=== PATIENT | female | born 1965 | race Caucasian/White ===

== ENCOUNTER 2017-08-04 14:49 | Emergency (ER) | payer MEDICAID ==
[~2017-08-04] VITALS: Ht 154.9 cm; Wt 70.2 kg
[~2017-08-04 14:49] MED LIST: ALBU8.5H8 IH; NORCO10T PO
[2017-08-04 14:50] VITALS: BP 135/81
[2017-08-04 15:26] LABS: BASOPHILS % (AUTO) 0.8 % (0-1); EOSINOPHILS # (AUTO) 0.2 X10'3 (0-0.9); EOSINOPHILS % (AUTO) 2.8 % (0-6); HEMATOCRIT 40.1 % (35.0-45.0); HEMOGLOBIN 13.7 g/dl (12.0-16.0); LYMPHOCYTES # (AUTO) 3.2 X10'3 (1.1-4.8); LYMPHOCYTES % (AUTO) 49.5 % (21-51); MEAN CORPUSCULAR HEMOGLOBIN 32.4 PG (27.0-31.0); MEAN CORPUSCULAR HGB CONC 34.1 % (33.0-36.5); MEAN CORPUSCULAR VOLUME 94.8 FL (78-98); MEAN PLATELET VOLUME 8.3 FL (7.4-10.4); MONOCYTES # (AUTO) 0.5 X10'3 (0-0.9); MONOCYTES % (AUTO) 7.8 % (2-12); NEUTROPHILS # (AUTO) 2.5 X10'3 (1.8-7.7); NEUTROPHILS % (AUTO) 39.1 % (42-75); PLATELET COUNT 175 X10'3 (140-440); RED BLOOD COUNT 4.23 X10'6 (4.20-5.60); RED CELL DISTRIBUTION WIDTH 14.3 % (11.5-14.5); WHITE BLOOD COUNT 6.4 X10'3 (4.5-11.0)
[2017-08-04 15:40] LABS: ALANINE AMINOTRANSFERASE 147 U/L (12-78); ALBUMIN 3.7 G/DL (3.4-5.0); ALKALINE PHOSPHATASE 59 IU/L (46-116); ANION GAP 7 (8-16); ASPARTATE AMINO TRANSFERASE 96 U/L (10-37); BILIRUBIN,TOTAL 0.3 MG/DL (0.1-1.0); BLOOD UREA NITROGEN 8 MG/DL (7-18); CALCIUM 8.9 MG/DL (8.5-10.1); CHLORIDE 104 MMOL/L (99-107); GLUCOSE 124 MG/DL (70-104); POTASSIUM 3.5 MMOL/L (3.5-5.1); SODIUM 137 MMOL/L (135-145); TOTAL CARBON DIOXIDE 26.2 MMOL/L (24-32); TOTAL PROTEIN 7.3 G/DL (6.4-8.2); eGFR 75 ML/MIN
[2017-08-04] MEDS ORDERED: POTA20TA19 PO (15:47)
[2017-08-04] MEDS ORDERED: diphenhydrAMINE 50 mg/ml inj IM ONE (15:50)
[2017-08-04] MEDS ORDERED: ketorolac trometh inj. 60 MG/2 ML VIAL IM ONE (15:50)
[2017-08-04] MEDS ORDERED: LORazepam 1 MG tablet PO ONE (15:50)
[2017-08-04] MEDS ORDERED: metoclopramide 5 mg/ml inj IM ONE (15:50)
== END 2017-08-04 16:25 | disposition home or self-care (01) ==
LOC: ER 14:50
DX: E87.6 Hypokalemia (principal); R51 Headache; R20.0 Anesthesia of skin; R68.84 Jaw pain; F17.210 Nicotine dependence, cigarettes, uncomplicated; G89.29 Other chronic pain; Z90.49 Acquired absence of other specified parts of digestive tract; Z90.710 Acquired absence of both cervix and uterus; Z98.890 Other specified postprocedural states; Z56.0 Unemployment, unspecified; Z88.0 Allergy status to penicillin; Z88.2 Allergy status to sulfonamides; Z88.5 Allergy status to narcotic agent; Z79.899 Other long term (current) drug therapy
CPT/HCPCS: 36415; 70450; 80053; 85025; 96372; 99285; J1200; J1885; J2765

== ENCOUNTER 2017-12-18 20:02 | Emergency (ER) | payer MEDICAID ==
[~2017-12-18] VITALS: Ht 154.9 cm; Wt 57.0 kg
[2017-12-18 20:03] VITALS: BP 122/73
== END 2017-12-18 21:16 | disposition home or self-care (01) ==
LOC: ER 20:03
DX: S86.912A Strain of unspecified muscle(s) and tendon(s) at lower leg level, left leg, initial encounter (principal); G89.29 Other chronic pain; Z90.49 Acquired absence of other specified parts of digestive tract; Z90.710 Acquired absence of both cervix and uterus; Z98.890 Other specified postprocedural states; Z56.0 Unemployment, unspecified; Z88.5 Allergy status to narcotic agent; Z88.0 Allergy status to penicillin; Z88.2 Allergy status to sulfonamides; Z79.899 Other long term (current) drug therapy; X58.XXXA Exposure to other specified factors, initial encounter; Y93.89 Activity, other specified; Y92.89 Other specified places as the place of occurrence of the external cause; Y99.8 Other external cause status
CPT/HCPCS: 99281

== ENCOUNTER 2019-03-19 17:07 | Emergency (ER) | payer MEDICAID ==
[~2019-03-19] VITALS: Ht 152.4 cm; Wt 61.4 kg
[~2019-03-19 17:07] MED LIST changes: +ONDA4TAB6 PO; +PANT-47 PO
[2019-03-19] MEDS ORDERED: DICL100G15 TOP (18:19)
[2019-03-19 18:20] VITALS: BP 143/93
== END 2019-03-19 18:28 | disposition home or self-care (01) ==
LOC: ER 17:08
DX: M25.512 Pain in left shoulder (principal); G89.29 Other chronic pain; F17.200 Nicotine dependence, unspecified, uncomplicated; F10.99 Alcohol use, unspecified with unspecified alcohol-induced disorder; Z86.19 Personal history of other infectious and parasitic diseases; Z90.49 Acquired absence of other specified parts of digestive tract; Z90.710 Acquired absence of both cervix and uterus; Z98.890 Other specified postprocedural states; Z56.0 Unemployment, unspecified; Z88.2 Allergy status to sulfonamides; Z88.0 Allergy status to penicillin; Z88.8 Allergy status to other drugs, medicaments and biological substances; Z88.5 Allergy status to narcotic agent; Z79.899 Other long term (current) drug therapy; X58.XXXA Exposure to other specified factors, initial encounter; Y93.89 Activity, other specified; Y92.89 Other specified places as the place of occurrence of the external cause; Y99.8 Other external cause status; Y90.9 Presence of alcohol in blood, level not specified
CPT/HCPCS: 99283

== ENCOUNTER → 2023-12-28 | Outpatient (CLI) | payer MEDICAID ==
[~2023-12-28] MED LIST changes: +ALBU8.5H17 IH; -ALBU8.5H8 IH; +DICL100G15 TOP
== END | disposition home or self-care (01) ==
LOC: RAD 12:27
PROVIDERS: ATTEND Physician Assistant
DX: J44.1 Chronic obstructive pulmonary disease with (acute) exacerbation (principal)
CPT/HCPCS: 71046